=== PATIENT | male | born 1945 | race Caucasian/White ===

== ENCOUNTER 2017-01-21 13:38 | Day surgery (SDC) | payer MEDICARE ==
[~2017-01-21] VITALS: Ht 193 cm; Wt 88.4 kg
[2017-01-21] VITALS (11 sets, daily range): BP systolic 70–151; BP diastolic 40–99; PULSE 87–110; RESP 14–20; O2SAT 97–100
[~2017-01-21 13:38] MED LIST: ALLO300T2 PO; ASPI-973 PO; CALC-51 PO; LISI10TA PO; Levofloxacin 500 mg/100 mL D5W IV SCH; MULT-1018 PO; Mitomycin Inj 40 MG in Syringe 1 EACH IRRIGATION SCH
[2017-01-21] MEDS ORDERED: Ondansetron 2 mg/mL 2 mL Inj ONE (13:39)
[2017-01-21] MEDS ORDERED: Rocuronium 10 mg/mL 5 mL Inj ONE (13:39)
[2017-01-21] MEDS ORDERED: Propofol 10,000 mCg/mL 20 mL Inj ONE (13:39)
[2017-01-21] MEDS ORDERED: fentaNYL-PF 50 mCg/mL 2 mL Inj ONE (13:39)
[2017-01-21] MEDS ORDERED: Dexamethasone 10 mg/mL Inj ONE (13:39)
[2017-01-21] MEDS ORDERED: levoFLOXacin 500 mg/100 mL D5W Premix IV ONE ×2 (13:39→14:16)
[2017-01-21] MEDS: Lactated Ringer's 1,000 ML IV SCH ×3 (14:08→20:18)
[2017-01-21] MEDS ORDERED: Belladonna Alk-Opium 60 mg Rectal Suppository RECTAL ONE (17:25)
[2017-01-21] MEDS ORDERED: Lactated Ringer's 1,000 ML IV SCH (19:51)
[2017-01-21] MEDS ORDERED: Lactated Ringer's 500 ML IV PRN (19:51)
--- NOTE | 2017-01-21 19:51 | PCM.HPANE ---
Patient Data Surgeon Admitting Provider: Attending Provider:Eric Philippe MD Primary Care Physician:Cesar Mcgowan MD Other Provider:[facility] Reason for Visit Bladder Tumor Ht/WT & BMI Height (Feet): 6 Height (Inches): 4 Weight (Kilograms): 86.6 Body Mass Index 23.00 Allergies Coded Allergies: niacin (Verified Allergy, Unknown, flushing, 01/21/17) tetracycline (Verified Allergy, Unknown, nausea, 01/21/17) Past Anesthesia History Anesthesia History: Denies:: Abnormal Airway, Anesthesia Reactions, Difficult Intubation, Fam Anesthesia Reaction Diabetes History Hx Diabetes?: No MRSA MRSA: No Medications Hypertension Medication: Yes Home Meds Incl Beta David: No Reported Medications Multivitamin (Multi Vitamin Daily)1 Each Tablet1 Each PO DAILY 30 Days Ref 0 01/18/17 Lisinopril 10 Mg [id number] Mg PO DAILY 30 Days Ref 0 01/18/17 Calcium Carbonate/Vitamin D3 (Calcium 500 + Vit D 400 Tablet)1 Each Tablet1 Each PO DAILY 01/18/17 Aspirin 81 Mg [id number] Mg PO DAILY Ref 0 01/18/17 Allopurinol 300 Mg [id number] Mg PO DAILY Ref 0 01/18/17 History History of ENT Problems?: Yes HEENT History: Positive for:: Cataracts (right eye December 16, 2016- remote hx of left eye) TMJ (wears nightguard) Denies:: Abnormal Airway Difficult Intubation Dysphagia Glaucoma Hearing Problem Sinus Problem Denture Type: None Teeth Condition: Within Normal Limits Other HEENT Pertinent History: dental implants in place Hx of Heart Problems?: Yes Cardiovascular History: Positive for:: Hypertension Denies:: AICD Abdominal Aortic Aneurism Atrial Fibrillation Cardiac Surgery Edema Heart Murmur Irregular Heartbeat Pacemaker Peripheral Vascular Hx of Respiratory Problem?: No Respiratory History: Denies:: Asthma COPD Emphysema Oxygen Administration Pneumonia Tuberculosis Use of C-PAP Machine Use of Inhalers / NEBS Hx Neurologic Problems?: No Neurological History: Denies:: CVA Dizziness Headaches Multiple Sclerosis Parkinson's Disease Seizures TIA Hx of GI Problems?: No Hx of Problems?: Yes Genitourinary History: Denies:: Kidney Stones Urinary Tract Infection Other Pertinent History: bladder tumor current admission problem Male Hx: Positive for:: Prostate Problems (BPH) Testicular Surgery (vas) Skin History: Denies:: History Skin Disorders? Pressure Ulcers Hx Musculoskeletal Problems?: Yes Musculoskeletal History: Positive for:: Osteoarthritis Denies:: Back Injury Fibromyalgia Joint Replacement Musculoskeletal Trauma Myasthenia Gravis Systemic Lupus Hx of Psycho/Social Problems?: No Psycho Social History: Denies:: Anxiety Hx Depression Hx Surgeries?: Yes (vas, cataract, ) Hx Any Other Health Problems?: Yes Other History: Positive for:: Cancer (bladder tumor ) Denies:: Thyroid Disease Hx Diabetes: No Hx Alcohol Use: Yes (not for a couple months now)Alcoholic Drinks Per Day: 3- 4 drinks on weekendHx Substance Use: NoHave You Smoked inLast 12 mo: No Stop/Bang S-Snoring: Do You Snore Loudly: No T-Tired: feel tired, fatigued: No O-Obsered: Observed not breath: No P-Blood Pressure: treated: Yes B- Body Mass Index > 35 kg/m2: No A- Age over 50: Yes N- Neck Large Circumference: No G- Gender Male: Yes YENNI Total Score: 3 Risk Assessment Category Category 1A: Patient has history of documented sleep apnea, and HAS NOT received any narcotic, sedative or anesthesia administration during this stay. Category 1B: Patient has history of documented sleep apnea, and HAS received any narcotic , sedative or anesthesia administration during this stay Category 2: Patient has SUSPECTED Obstructive Sleep Apnea, and HAS received any narcotic , sedative or anesthesia administration during this stay. Category 3: Patient has SUSPECTED Obstructive Sleep Apnea and HAS NOT received narcotic, sedative or anesthesia administration during this stay. Category 4: Outpatient in Procedural Areas with known sleep apnea or who screen positive for High Risk via the STOP/BANG questionnaire. Exam Exam Vital Signs Vital Signs Date Time Temp Pulse Resp B/P Pulse Ox O2 Delivery O2 Flow Rate FiO2 01/21/17 14:07 36.8 87 16 151/67 98 Room Air General Appearance: Alert HEENT/AIRWAY: MP 2, Neck Movement (from, 3fb) Lungs: Clear to Auscultation Heart: Regular Rate/Rhythm Meds/Labs/Diagnostics Admission Meds Current Medications Lactated Ringer's (Lr) 1,000 ml @ 120 mls/hr Q8H20M IV Last administered on t 14:08; Start 01/21/17 at 05:00; Stop 01/21/17 at 13:19; Status DC Plan Impression Patient chart reviewed, patient interviewed and anesthestic plan with risks, benefits, and alternatives discussed, and informed consent obtained. NPO per Anesth. Guidelines: Yes ASA Physical Status: ASA2 Mod Systemic Disease Anesthetic Plan: GA Bene/Risks/Altern/Consents: Yes HP Complete Prior to Induction: Yes Darwin Dutton MD Jan 21, 2017 15:07
[2017-01-21] MEDS ORDERED: Ondansetron 2 mg/mL 2 mL Inj IVPUSH PRN ×2 (19:55→20:40)
[2017-01-21] MEDS ORDERED: Dexamethasone 4 mg/mL Inj IVPUSH PRN (19:55)
[2017-01-21] MEDS ORDERED: fentaNYL-PF 50 mCg/mL 2 mL Inj IVPUSH PRN (19:55)
[2017-01-21] MEDS ORDERED: MetoCLOpramide 5 mg/mL 2 mL Inj IVPUSH PRN ×2 (19:55→20:40)
[2017-01-21] MEDS ORDERED: EPHEDrine Sulfate 50 mg/mL Inj IVPUSH PRN (19:55)
[2017-01-21] MEDS ORDERED: HYDROmorphone 1 mg/mL Inj IVPUSH PRN (19:55)
[2017-01-21] MEDS ORDERED: Phenylephrine/NS-PF 100 mCg/mL 5 mL Syringe IVPUSH ONE (20:13)
--- NOTE | 2017-01-21 20:13 | PCM.SURGPO ---
Immediate Operative Note Date of Surgery: Jan 21, 2017 Pre Operative Diagnosis Bladder tumor Post Operative Diagnosis Bladder tumor Procedure Cystoscopy, transurethral resection of bladder tumor (> 5cm)(modifier 22) Surgeon and Talk Show Host Surgeon: Eric Philippe MD Assistants: None Findings Cystoscopy revealed a very large > 7-8cm sessile and papillary bladder tumor on R trigone and R lateral wall (extending to bladder neck, anterior wall, and dome ), L ureteral orifice in normal position, and R ureteral orifice unable to be identified (secondary to overlying bladder tumor). Bladder tumor resected using bipolar loop electrocautery. R ureteral orifice and opening to R distal ureter unable to be identified after resection of bladder tumor. L ureteral orifice seen to be intact and well-preserved at the end of the case. Complications There were no periprocedural complications identified. Surgical Specimen Removed: Yes Specimen sent to Pathology: Yes Surgical Specimen description: R trigone and R lateral wall bladder tumor - superficial, R trigone and R lateral wall bladder tumor - deep Anesthetic Administered: GA Grafts, Implants: Other (22F 3-way hematuria Sultana catheter to straight drainage (30ml in balloon)) Output, Estimated Blood Loss: 100 Blood Admin during surgery: No Additional information [facility] MD Jan 21, 2017 20:13
[2017-01-21] MEDS: Phenylephrine 10,000 mCg/mL Inj IVPUSH PRN ×2 (20:15→20:19)
--- NOTE | 2017-01-21 20:16 | PCM.ANEP1 ---
Post Anesthesia PACU Phase 1 Assessment Vital Signs Vital Signs Date Time Temp Pulse Resp B/P Pulse Ox O2 Delivery O2 Flow Rate FiO2 01/21/17 20:10 36.1 110 16 87/49 100 Simple Mask 8 01/21/17 14:07 36.8 87 16 151/67 98 Room Air Anesthetic Administered: GA Level of Alertness: Awake, talking GARCIA's with Equal Strength: Yes Pain: No Nausea or Vomiting: No CV Function & Hydration Stable: Yes Airway Device: Oxygen Delivery: Simple Mask Lungs: Clear to Auscultation PACU Phase 2 Assessment Complications: No Follow up Care: N/A Patient Instructions Provided: N/A Darwin Dutton MD Jan 21, 2017 20:15
[2017-01-21] MEDS ORDERED: HYDROcodone-APAP 5-325 mg Tablet PO PRN (20:40)
[2017-01-21] MEDS ORDERED: diphenhydrAMINE 25 mg Capsule PO PRN (20:40)
[2017-01-21] MEDS ORDERED: Polyethylene Glycol (PEG) 17 Gm Powder PO PRN (20:40)
[2017-01-21] MEDS ORDERED: Phenazopyridine 97.5 mg Tablet PO PRN (20:40)
[2017-01-21] MEDS: 0.9% Sodium Chloride 1,000 ML IV SCH (21:33)
[2017-01-21 23:16] LABS: APPEARANCE,URINE CLOUDY (CLEAR,HAZY); COLOR,URINE BLOODY (YELLOW); PH,URINE COLOR INTERFERENCE (5.0-8.0)
[2017-01-21 23:17] LABS: OCCULT BLOOD,URINE COLOR INTERFERENCE (NEGATIVE); UROBILINOGEN,URINE COLOR INTERFERENCE mg/dL (NORMAL)
[2017-01-22] VITALS (10 sets, daily range): BP systolic 78–146; BP diastolic 46–95; PULSE 85–144; RESP 15–20; O2SAT 95–100
[2017-01-22] MEDS: 0.9% Sodium Chloride 1,000 ML IV SCH ×2 (05:13→14:09)
[2017-01-22 06:22] LABS: INR 0.96 ratio; Mean Corpuscular Hemoglobin 29.4 pg (27.0-35.0); Mean Corpuscular Volume 89.3 fL (81-100)
[2017-01-22] MEDS: Lactated Ringer's 1,000 ML IV SCH (08:58)
--- NOTE | 2017-01-22 12:43 | PCM.PNSURG ---
Subjective Visit Information: Reason for Visit Bladder Tumor Surgery/Surgery Date Post-Op Day # Date of Admission: Hospital Day # Objective Vital Sign- Last 8 Hours Date Time Temp Pulse Resp B/P Pulse Ox O2 Delivery O2 Flow Rate FiO2 01/22/17 11:25 144 18 123/62 100 Room Air 01/22/17 09:16 36.3 88 15 146/74 99 Room Air 01/22/17 06:00 36.7 85 16 125/72 97 Room Air Intake and Output- Last 8 Hour 01/22/17 Cumulative From/Thru 07:00 01/18/17 10:42 - 01/22/17 06:43 Intake Total 1394 ml 3394 ml Output Total 260 ml 490 ml Balance 1134 ml 2904 ml Intake Oral 400 ml 400 ml IV Total 994 ml 2994 ml Output Urine Total 260 ml 290 ml Estimated Blood Loss 200 ml Result Diagram: 01/22/17 0535 01/22/17 0535 Eric Philippe MD Jan 22, 2017 12:43
--- NOTE | 2017-01-22 13:27 | PCM.PNSURG ---
Subjective Date of Service: Jan 22, 2017 Date of Service: Jan 22, 2017 Subjective: Patient reports occasional minimal suprapubic discomfort (not requiring pain meds), no other abdominal pain or discomfort, no back or flank pain, no nausea or vomiting, has been OOB to chair. Patient had episode of tachycardia (HR 144 ) earlier today, with tachycardia self-resolving. Of note, patient was seen at mid-day today. Objective Vital Sign- Last 8 Hours Date Time Temp Pulse Resp B/P Pulse Ox O2 Delivery O2 Flow Rate FiO2 01/22/17 12:50 36.8 103 16 138/69 99 Room Air 01/22/17 11:25 144 18 123/62 100 Room Air 01/22/17 09:16 36.3 88 15 146/74 99 Room Air 01/22/17 06:00 36.7 85 16 125/72 97 Room Air Intake and Output- Last 8 Hour 01/22/17 Cumulative From/Thru 07:00 01/18/17 10:42 - 01/22/17 06:43 Intake Total 1394 ml 3394 ml Output Total 260 ml 490 ml Balance 1134 ml 2904 ml Intake Oral 400 ml 400 ml IV Total 994 ml 2994 ml Output Urine Total 260 ml 290 ml Estimated Blood Loss 200 ml Sultana urine output: 260ml last 8hr. shift General: Alert, Oriented X3, Cooperative, No Acute Distress Neck: Supple Lungs: Normal Air Movement Abdomen: Soft, Non-tender, Non-distended, Other (no rebound or guarding) Neuro: Normal Speech, Sensation Intact Catheters: Pre Existing Sultana Cath (in place, draining clear urine) Result Diagram: 01/22/17 0535 01/22/17 0535 Assessment & Plan Impression POD #1, s/p cystoscopy and transurethral resection of very large bladder tumor, observed overnight secondary to lateness of case, afebrile, hemodynamically stable except for episode of tachycardia earlier today, with good urine output, with labs this AM showing stable Hct (29.1) and normal Cr (1.10), doing well post-op except for episode of tachycardia Problems: Plan Continue Sultana to straight drainage Hospitalist consultation requested for evaluation of episode of tachycardia Upright PA CXR with nipple markers ordered secondary to pre-op CXR showing bibasilar rounded densities (likely prominent nipple shadows) Plan is for discharge home with Sultana later today if medically cleared by hospitalist. Discharge meds: Cipro, [place], Colace, Pyridium. Patient will return to see me in 1.5 weeks for post-op visit and trial of void VTE Prophylaxis: SCDs Resuscitation Status: CPR: Attempt Resuscitation Eric Philippe MD Jan 22, 2017 13:27
--- NOTE | 2017-01-22 16:11 | PCM.CHPMED ---
Subjective Date of Service: Jan 22, 2017 Provider requesting consult: Eric Philippe MD Primary Physician: Admitting Physician: Primary Care Physician: Cesar Mcgowan MD Attending Physician: Eric Philippe MD Chief Complaint: Chief Complaint: Tachycardia History of Present Illness: 71-year-old male with history of gout, hypertension, and recent hematuria who was referred to urology in October and underwent cystoscopy with identification of a large 7-8 cm sessile and papillary bladder tumor that was removed using bipolar loop electrocautery. Patient is currently postop day 2. Patient was planning for discharge today. Upon arising from bed for the first time in a couple of days the patient experienced dizziness and a tachycardia of 144 which is steadily resolving. The patient's pulse had previously been in the 80s. Blood pressures were stable throughout his stay. Patient denies associated shortness of breath, chest pain, nausea, vomiting, abdominal pain, lightheadedness, or tingling in the hands or feet. Patient also denies fever or chills or symptoms of infection. EKG was obtained which shows normal sinus rhythm with rate in the 80s. Consultation was sought by Dr. Philippe of urology prior to patient's discharge. Patient has no history of cardiac disease, does not smoke, and has not been using alcohol for a couple months. Patient states that is usually very active and being stuck in bed for 2 days has been difficult for him. He denies anxiety, history of cardiac arrhythmias, or previous stress test/chest pain. Patient's blood work shows a decline in his hemoglobin from 11.4 prior to the procedure to 9.6 today. BMPs show a elevated glucose and mildly elevated chloride and BUN. Review of Systems: Complete review of systems performed; pertinent positives and negatives per history of present illness, all other systems reviewed and are negative PMH Past Medical History Taken from [facility]: -Essential Hypertension -Gout -Hyperlipidemia -No report of diabetes Hx Any Other Health Problems?: NoHx Diabetes: No Surgical History Vasectomy in 1975 Cataract surgery in the left eye 20/15 Home Medications Patient is taking lisinopril 10 mg, allopurinol 300 mg, calcium supplement, and aspirin 81 mg Allergies: Coded Allergies: niacin (Verified Allergy, Unknown, flushing, 01/21/17) tetracycline (Verified Allergy, Unknown, nausea, 01/21/17) Family History Family History Father of [place] at 93 Social History Hx Alcohol Use: Yes (not for a couple months now)Alcoholic Drinks Per Day: 3- 4 drinks on weekend Hx Substance Use: NoHx Tobacco Use: No Smoking Status: Never Smoker Exam Vital Signs Vital Sign - Last Date Time Temp Pulse Resp B/P Pulse Ox O2 Delivery O2 Flow Rate FiO2 01/22/17 15:15 36.3 100 16 129/69 99 Room Air 01/22/17 00:45 2.00 Intake and Output 01/21/17 01/21/17 01/22/17 Cumulative From/Thru 15:00 23:00 07:00 01/18/17 10:42 - 01/22/17 06:43 Intake Total 2000 ml 1394 ml 3394 ml Output Total 230 ml 260 ml 490 ml Balance 1770 ml 1134 ml 2904 ml Intake Oral 400 ml 400 ml IV Total 2000 ml 994 ml 2994 ml Output Urine Total 30 ml 260 ml 290 ml Estimated Blood Loss 200 ml 200 ml General: Alert, Oriented X3, Cooperative Eyes: PERRLA, EOMI Mouth: Mucous Membranes Dry Neck: Supple Chest & Lungs: Chest Wall Normal Cardiovascular: Exam Unremarkable, No Murmurs/Rubs/Gallops, Other (mild tachycardic) Pulses: NL carotid, radial, femoral, DP, PT Abdomen: Non-tender, Non-distended, Normoactive bowel tones Extremities: No cyanosis/clubbing/edma bilat Neurological: Grossly Neurologically Intact Lab and Diagnostics Result Diagram: 01/22/17 0535 01/22/17 0535 12-lead ECG Normal sinus rhythm with rate 80s to 90s Assessment & Plan Assessment 71-year-old male who is currently admitted after undergoing bladder tumor resection who developed tachycardia after rising from bed with associated dizziness but without racing heartbeat, chest pain, shortness of breath, fever, or chills. Acute tachycardia; present on admission; ongoing -Patient's story is most consistent with orthostatic hypotension due to volume depletion -Could also be due to more acute anemia, although patient has no previous cardiac history to suggest that hemoglobin 9.6 should be symptomatic -EKG appears to be in normal sinus rhythm -Agree with repeat chest x-ray -Fluid resuscitation with normal saline at 125 mL/hour with an additional 500 bolus -Recommend follow-up with primary care doctor should the problem persists -Patient has no chest pain -If patient states tonight recommend telemetry and lipid panel tomorrow morning Acute blood loss anemia; not present on admission; ongoing -Hemoglobin on admission was 11.4, trending down to 9.6 today -Primarily due to recent cystoscopy and tumor resection -Patient can follow-up and have Iron and B12/folate studies -Recommend repeating CBC prior to discharge to assure stability Hypertension; stable -Blood pressure has been very well-maintained throughout her stay -reassess for lisinopril tomorrow morning if patient is here Bladder tumor follow-up with urology Thank you for allowing us to participate in the care of this patient. If there are any questions please page yellow team or swelling pager Problems: Pain Evaluation: Adequate Pain Control VTE Mechanical Devices: Intermittant Pneumatic CD Resuscitation Status: CPR: Attempt Resuscitation Time spent 40 minutes Attending Statement The patient was seen and examined together with on 01/22/2017 and I agree with the history, exam findings, and plan as outlined in the note above. I did participate in all aspects of the services provided today, including documentation and the plan of care. The patient appears to have a transient tachycardia which were weights likely to mild anemia as well as volume depletion. The patient will be given a small amount of normal saline and appears to be stable for discharge home. There appeared to be no complications from his cystoscopy and bladder tumor resection today. Ermias Garcia DO Jan 22, 2017 16:11 Khari Ingram MD Jan 24, 2017 07:34
--- NOTE | 2017-01-22 16:36 | PCM.DISURG ---
Surgical Discharge Instruction Date of Service Jan 22, 2017 Dates of Hospitalization Date of Hospital Admission Jan 21, 2017 Providers Admitting Physician: Eric Philippe MD Primary Care Physician: Cesar Mcgowan MD Attending Physician: Eric Philippe MD Discharge Diagnosis Discharge Diagnosis Bladder tumor Post Operative diagnosis Bladder tumor Diet Discharge Diet: No restrictions, Other (Drink at least 10-12 8oz. glasses (3 liters) of fluids per day as long as there is blood in the urine) Activity Discharge Activity-General: No driving while taking narcotic, Other (No strenuous exercise/activity or moderate or heavy lifting (> 10 lbs.) for 1-2 weeks and as long as there is blood in the urine) Dressing and Incisional Care Hygiene: May shower Additional Instructions Discharge Instructions Do not take any blood-thinning medications for 7 days after surgery (including Aspirin, Ibuprofen, Motrin, Advil, Naproxen, Aleve, fish oil, and Vitamin E) Follow Up Plan Follow-up Provider (F9): Eric Philippe MD Follow-up appointment: Weeks (1.5 weeks for post-op visit and trial of void) Call your provider for: Fever, Chills, Vomiting, Other (Pain uncontrolled by pain medications, non-draining Sultana catheter) Eric Philippe MD Jan 22, 2017 16:35
[2017-01-22] MEDS ORDERED: 0.9% Sodium Chloride 500 ML IV PRN (17:00)
--- NOTE | 2017-01-22 18:43 | DRSVH ---
PROCEDURE: X-RAY CHEST, TWO VIEWS ([id number]) INDICATIONS: upright PA CXR w/nipple markers TECHNIQUE: 2 views of the chest were acquired. COMPARISON: None. FINDINGS: Surgical changes and devices: None. Lungs and pleura: No pleural effusions or pneumothorax. Lungs are clear. Mediastinum: Mediastinal contours are normal. Heart size is normal. Bones and chest wall: No suspicious bony abnormalities. Soft tissues appear unremarkable. IMPRESSION: No acute cardiopulmonary findings. Dictated by: Daisy Rendon M.D. on 01/22/2017 at 18:41 Approved by: Daisy Rendon M.D. on 01/22/2017 at 18:42
--- NOTE | 2017-01-22 21:18 | OP ---
[address] [address] OPERATIVE REPORT PATIENT: SHREYAS RIVERA : 1945 MR#: [id number] ADMIT: 01/21/2017 JOB ID: [id number] DATE OF SURGERY: 01/21/2017 PREOPERATIVE DIAGNOSIS(ES): Bladder tumor. POSTOPERATIVE DIAGNOSIS(ES): Bladder tumor. PROCEDURE: Cystoscopy, transurethral resection of bladder tumor (greater than 5 cm). (Modifier 22.) SURGEON: Eric Philippe MD SUPERVISOR SHIPPING ROOM: None. ANESTHESIA: General. ESTIMATED BLOOD LOSS: 100 mL. SPECIMENS: Right trigone and right lateral wall bladder tumor-superficial, right trigone and right lateral wall bladder tumor-deep. DRAINS: A 22-Andorran, 3-way hematuria Sultana catheter to straight drainage (30 mL in balloon). COMPLICATIONS: None. CONDITION: Stable. FINDINGS: Cystoscopy revealed a very large, greater than 7-8 cm, sessile and papillary bladder tumor on the right trigone and right lateral wall (extending to the bladder neck, anterior wall bladder neck, anterior wall, and dome), left ureteral orifice in normal position and right orifice unable to be identified (secondary to overlying bladder tumor). Bladder tumor resected using bipolar loop electrocautery. The right ureteral orifice and the opening to right distal ureter unable to be identified after resection of bladder tumor. The left ureteral orifice was seen to be intact and well-preserved at the end of the case. INDICATIONS: The patient is a 71-year-old male found to have a bladder tumor on office cystoscopy. The patient now presents for cystoscopy, transurethral resection of bladder tumor, possible right ureteral stent placement, and mitomycin intravesical instillation. DESCRIPTION OF PROCEDURE: The patient was brought to the operating room and placed supine on the operating room table. The patient was given Levaquin IV antibiotics. Sequential compression device boots were placed. General anesthesia was administered. The patient was brought down into the dorsal lithotomy position. The patient was prepped and draped in the standard surgical fashion. A 26-Andorran continuous flow resectoscope was placed in the distal urethra without difficulty. Cystoscopy revealed normal distal urethra. Bilobar prostatic hypertrophy. Mild to moderately trabeculated bladder. A very large, greater than 7-8 cm, sessile and papillary bladder tumor on the right trigone and right lateral wall (extending to the bladder neck, anterior wall, and dome). Left ureteral orifices in normal position and right orifice unable to be identified (secondary to overlying bladder tumor). Visualization was initially suboptimal secondary to gross hematuria from the bladder tumor secondary to bleeding from the bladder tumor. Of note varicosities were noted and large blood vessels were noted on the patient's bladder in the parts of the bladder that were uninvolved with the tumor. Varicosities and large blood vessels were also noted within the bladder tumor. The bladder tumor was resected in its entirety using Thunderbeat bipolar loop electrocautery and sent to pathology for permanent specimen in two separate specimens, the 1st superficial and the 2nd specimen deep. Of note methylene blue was given intravenously during the case to forge operator helper in identification of the right ureteral orifice and opening to the right distal ureter. However, after resection of the bladder tumor the right ureteral orifice and opening to the right distal ureter were unable to be identified. After resection of bladder tumor the left ureteral orifice was seen to be intact and well preserved at the end the case. Of note, a modifier 22 is being applied to this case secondary to the very high difficulty of the case secondary to the very large size of the bladder tumor, secondary to the significant amount of bleeding from the bladder tumor during the case, and secondary to the difficulty encounter encountered in resecting the bladder tumor secondary to the mostly sessile nature of the bladder tumor, and secondary to the case taking greater then 50% longer than usual for this type of case. However, the bladder tumor was able be resected in its entirety. The base of the bladder tumor resected area, including normal surrounding bladder mucosa, was fulgurated using Thunderbeat bipolar rollerball electrocautery. Excellent hemostasis was achieved by the end of the case; however, significant bleeding did occur during the case secondary to the very vascular nature of the bladder tumor. Excellent hemostasis was achieved by the end of the case using the bipolar rollerball electrocautery. The left ureteral orifice was seen to be intact and well-preserved at the end of the case. Of note, the Stratos evacuator was used during the case to aid in evacuation of the bladder tumor specimens. The bladder tumor specimens were sent to pathology for permanent specimen. The continuous-flow resectoscope was removed from the patient. A 22-Andorran 3-way hematuria Sultana catheter was placed through the urethra and into the bladder without difficulty. The Sultana catheter balloon was inflated with 30 mL of sterile water. The Sultana catheter was placed to straight drainage. The Sultana catheter was irrigated without difficulty. The Sultana catheter was seen to drain light blood-tinged drainage of urine. The skin was cleaned and dried. The patient was placed in supine position. The patient was awakened from general anesthesia and transferred to the recovery room in stable condition. The patient tolerated the procedure well. The plan is for the patient be observed overnight in the med/surg bed secondary to the lateness of the end of the case. The patient will be discharged home with a Sultana catheter in placed. The postop plan will be for the patient to return to see me in the office in 1-1/2 weeks for a postop visit and trial of void.
--- NOTE | 2017-01-27 09:19 | PATH ---
SURGICAL PATHOLOGY Attending Physician:Eric Philippe MD CASE STATUS: Signed Out PATIENT NAME: SHREYAS RIVERA PID: [id number] : 1945 DATE COLLECTED:01/21/2017 00:00 SPECIMEN: 1: Bladder, Biopsy 2: Bladder, Biopsy CLINICAL HISTORY: BLADDER TUMOR 1). RIGHT LATERAL WALL & RIGHT TRIGONE BLADDER TUMOR SUPERFICIAL 2). RIGHT LATERAL WALL & RIGHT TRIGONE BLADDER TUMOR DEEP FINAL DIAGNOSIS: 1. 2. )RIGHT LATERAL WALL AND RIGHT TRIGONE BLADDER TUMOR, SUPERFICIAL AND DEEP, RESPECTIVELY, TRANSURETHRAL RESECTION OF BLADDER TUMOR (TURBT): - PAPILLARY UROTHELIAL CARCINOMA, INVASIVE, HIGH GRADE. - SEE CANCER CASE SUMMARY BELOW: CAP CANCER CASE SUMMARY Procedure: TURBT Tumor Site: Right Trigone and right lateral wall (superficial and deep). Histologic Type: Urothelial; papillary urothelial carcinoma, invasive. Histologic grade: High grade. Tumor Configuration: Papillary and flat. Muscularis Propria Presence: Muscularis propria (detrusor muscle) present. Lymphovascular Invasion: Foci suspicious for lymphovascular invasion identified. Microscopic Tumor Extension: Tumor invades lamina propria (subepithelial connective tissue). No definite muscularis propria invasion is identified, see comment. Pathologic Stage Classification (pTNM, AJCC 7th Edition): Primary tumor (pT): pT1, see comment. Regional Lymph Nodes (pN): Not applicable. Distant Metastasis (pM): Not applicable. Comment: Scattered foci of carcinoma involving muscle fibers are identified. The exact nature of the muscle cannot be determined accurately due to tangential sectioning. These muscle fibers might represent hypertrophic muscularis mucosa. Multiple histologic sections demonstrate bundles of muscularis propria without evidence of invasive carcinoma. This case will be sent to the [facility] for a second opinion, and the results will be reported in an addendum. ICD10 code C67 NOTE: As part of a routine quality improvement manager, pharmacy services representative slides of this case were also reviewed by Dr. Solano, who agrees with the above interpretation. GROSS DESCRIPTION: The specimens are received in formalin, labeled with the patient's name, and sublabeled as the following: (1) bladder tumor-superficial; (2) bladder tumor-deep. (1) The specimen consists of multiple fragments of flynn-rodgers glistening rubbery tissue mixed with blood clots (50.6 g, 12.0 x 10.0 x 2.3 cm in aggregate). The tissue and blood clots cannot be . Section code: (1A-1W) tissue. Specimen entirely submitted. (2) The specimen consists of multiple fragments of flynn-rodgers glistening rubbery tissue mixed with blood clots (43.0 g, 10.5 x 9.5 x 1.8 cm in aggregate). The tissue and blood clots cannot be . Section code: (2A-2R tissue. Specimen entirely submitted. 01/23/17 JM MICRO DESCRIPTION: See diagnosis. ICD-9 CODES: CPT CODES: 1: 00730 2: 48907 Electronically Signed Out Ceferino Smyth MD [facility] [address], [place] [address] Technical component performed at [facility], [facility] [address], [place], [address]
== END 2017-01-22 20:41 | disposition home or self-care (01) ==
LOC: SAS 13:38 → OSC 21:20 → SAS 01-22 20:41
PROVIDERS: ATTEND Urology
DX: C67.0 Malignant neoplasm of trigone of bladder (principal); C67.2 Malignant neoplasm of lateral wall of bladder; N40.1 Benign prostatic hyperplasia with lower urinary tract symptoms; R39.14 Feeling of incomplete bladder emptying; R39.15 Urgency of urination; N28.9 Disorder of kidney and ureter, unspecified; R31.0 Gross hematuria; I10 Essential (primary) hypertension; E78.5 Hyperlipidemia, unspecified; M19.90 Unspecified osteoarthritis, unspecified site; Z79.82 Long term (current) use of aspirin